=== PATIENT | male | born 1940 | race Caucasian/White ===

== ENCOUNTER → 2016-07-08 | Outpatient (CLI) | payer OTHER ==
--- NOTE | 2016-07-08 11:48 | DX ---
Left Wrist, Four Views, 11:11 a.m. Clinical History: 76-year-old male who presents for follow up of a dorsal triquetral fracture sustain ed after an injury on June 10, 2016. ICD-10 Diagnostic Code: S62.1158. Comparison Study: Left wrist, dated June 11, 2016. Findings: In the interim, there has been development of a transversely-oriented healing sclerosis at the site of a distal radial metaphyseal nondisplaced fracture. There is also a punctate radial styloi d avulsion fracture. There is an old healed ulnar distal metadiaphyseal junction fracture deformity. The previous study demonstrated a dorsal triquetral avulsion fracture fragment which is not appreciat ed currently and could be superimposed or there could have been osseous incorporation since the previ ous study. There is some degenerative osteoarthrosis with subchondral sclerosis of the distal navicul ar-greater multangular articulation, and also some degenerative osteoarthrosis of the thumb carpometa carpal joint. There is a subchondral geode (or marginal erosion) along the distal radial aspect of th e navicular. The bones are demineralized. Impression: 1. Healing sclerosis at the site of a nondisplaced distal radial metaphyseal fracture, with an associ ated punctate radial styloid avulsion fracture. 2. Old healed fracture deformity of the distal ulnar metadiaphyseal junction. 3. The prior dorsal triquetral avulsion fracture is not appreciated today, which could be projectiona lly superimposed or be related to some osseous incorporation. 4. Degenerative changes involving the distal radial aspect of the carpal bones and the thumb carpomet acarpal joint.
== END ==
LOC: BMCIMAGING 11:12
PROVIDERS: ATTEND Physician Assistant
DX: S62.115A Nondisplaced fracture of triquetrum [cuneiform] bone, left wrist, initial encounter for closed fracture (principal); X58.XXXA Exposure to other specified factors, initial encounter

== ENCOUNTER → 2016-10-20 | Outpatient (CLI) | payer OTHER | LOC: BMCIMAGING 11:28 | PROVIDERS: ATTEND Podiatrist Foot & Ankle Surgery | DX: M20.11 Hallux valgus (acquired), right foot (principal); M19.071 Primary osteoarthritis, right ankle and foot; M89.8X7 Other specified disorders of bone, ankle and foot ==

== ENCOUNTER 2016-11-06 16:24 | Inpatient (IN) | payer OTHER ==
--- NOTE | 2016-11-06 16:48 | CPEKG ---
Heart Rate: 117 RR Interval: 513 P-R Interval: 184 QRSD Interval: 94 QT Interval: 320 QTC Interval: 447 P Sheridan: 38 QRS Sheridan: 24 T Wave Sheridan: -15 EKG Severity - BORDERLINE ECG - EKG Impression: SINUS TACHYCARDIA EKG Impression: PROBABLE LEFT ATRIAL ABNORMALITY Electronically Signed By: Sarah Mohr 06-Nov-2016 23:00:17
[2016-11-06] MEDS ORDERED: NS 1,000 ML IV ONE (17:09)
[2016-11-06 17:28] LABS: % IMMATURE GRANULYOCYTES 0.3 % (0.0-1.1); ABSOLUTE IMMATURE GRANULOCYTES 0.02 10^3/uL (0.00-0.10); ADD DIFF? NO; ADD MORPH? NO; ADD SCAN? NO; ATYPICAL LYMPHOCYTE FLAG 0 (0-99); FRAGMENT RBC FLAG 0 (0-99); HEMATOCRIT 41.7 % (40.0-51.0); HEMOGLOBIN 14.1 g/dL (13.7-17.5); LEFT SHIFT FLG 0 (0-99); LIPEMIA HEMOLYSIS FLAG 90 (0-99); MEAN CELL HEMOGLOBIN 29.6 pg (27.9-34.1); MEAN CELL HEMOGLOBIN CONCENTR. 33.8 g/dL (32.4-36.7); MEAN CELL VOLUME 87.6 fL (81.5-99.8); MEAN PLATELET VOLUME 9.8 fL (8.7-11.7); PLATELET CLUMPS FLAG 0 (0-99); PLATELET COUNT 252 10^3/uL (150-400); RED BLOOD CELL COUNT 4.76 10^6/uL (4.40-6.38); RED CELL DISTRIBUTION WIDTH 14.9 % (11.5-15.2)
--- NOTE | 2016-11-06 17:33 | EDPHY ---
H & P Time Seen by Provider: 11/06/16 17:20 HPI/ROS: CHIEF COMPLAINT: Confusion HISTORY OF PRESENT ILLNESS: Patient is a 76-year-old male with a history of dementia. Over the past few days he has had increasing confusion and altered mental status. Patient's states this is not typical. states he had difficulty getting out of bed. She was concerned that he was going to fall getting to the car. This is not typical. Patient has had an occasional cough. No fever or chills. The patient has no specific complaints at this time. He denies headache, neck pain, chest pain, shortness of breath, abdominal pain, nausea, vomiting or diarrhea. REVIEW OF SYSTEMS: My complete review of systems is negative except as mentioned in the HPI. Past Medical/Surgical History: Includes dementia, psoriasis, eczema, chronic foot pain Past surgical history: Negative Social: Patient lives at home with his . He does not smoke. Smoking Status: Former smoker Physical Exam: Vitals noted. 37.3, 119/86, 129, 20, 93% on room air. When I entered the room his heart rate was 100. GENERAL: Well-appearing, in no acute distress, alert. Of note when I evaluated the patient and had him sit up he became dizzy. Heart rate went from 100 to 110. HEENT: Eyes normal to inspection, normal pharynx, no signs of dehydration. NECK: No thyromegaly, no lymphadenopathy, supple. RESPIRATORY: Clear to auscultation bilaterally, no rales, rhonchi or wheezing. CVS: Regular rate and rhythm, no rubs, murmurs, or gallops. ABDOMEN: Soft, nontender, nondistended, no organomegaly. BACK: Normal to inspection, no CVA tenderness. SKIN: Normal color, diffuse psoriasis and eczema, warm, dry. No pallor. EXTREMITIES: No pedal edema, no calf tenderness, no Homans sign or cords, no joint swelling. NEURO/PSYCH: Alert and oriented x3, normal mood and affect, normal motor sensory exam. No obvious cranial nerve deficit. Constitutional: Initial Vital Signs Temperature (C) 37.3 C 11/06/16 16:34 Heart Rate 129 H 11/06/16 16:34 Respiratory Rate 20 11/06/16 16:34 Blood Pressure 119/86 H 11/06/16 16:34 O2 Sat (%) 93 11/06/16 16:34 O2 Delivery Mode Nasal Cannula O2 (L/minute) 2 Allergies/Adverse Reactions: No Known Allergies Allergy (Unverified 11/06/16 16:34) Home Medications: Medication Instructions Recorded Donepezil HCl [Aricept] 5 mg PO 11/06/16 MIRTAZAPINE [Remeron 7.5 mg] 7.5 mg PO HS 11/06/16 Memantine HCl [Namenda 5 mg (*)] 5 mg PO BID 11/06/16 Medical Decision Making - Diagnostics EKG Interpretation: Sinus tachycardia 117. Normal axis. Normal intervals. Q-wave in II, III. Slight ST depression in V 4 and 5. Imaging Results: Imaging Impressions Chest X-Ray 11/06/16 17:09 Impression: Suspect early right upper lobe pneumonia. ED Course/Re-evaluation: In the emergency department I discussed possible etiologies with the patient. Laboratory studies, chest x-ray, and EKG ordered. Cultures are pending. The patient was given 1 L of normal saline on arrival. On recheck he is still mildly tachycardic when sitting up. He was given normal saline 500 mL IV. Patient's laboratory studies were unremarkable. CBC and chemistry were normal. Lactic acid was normal. UA is pending. Chest x-ray: Please refer the dictated report by the radiologist. Early right upper lobe pneumonia. The patient was given Levaquin 750 mg IV. Cultures are pending. I discussed the result with the patient and his . I answered all her questions. I discussed case with the hospitalist service. Patient will be admitted for further care. Differential Diagnosis: My differential includes but is not limited to bacteremia, sepsis, pneumonia, urinary tract infection, electrolyte abnormality, sugar abnormality, ACS, acute SD, dysrhythmia, dementia, CVA - Data Points Laboratory Results: Laboratory Results 11/06/16 16:43 11/06/16 16:43 11/06/16 11/06/16 11/06/16 18:50 17:48 16:43 WBC RBC Hgb Hct MCV MCH MCHC RDW Plt Count MPV Neut % (Auto) Lymph % (Auto) Love % (Auto) Eos % (Auto) Baso % (Auto) Nucleat RBC Rel Count Absolute Neuts (auto) Absolute Lymphs (auto) Absolute Monos (auto) Absolute Eos (auto) Absolute Basos (auto) Absolute Nucleated RBC Immature Gran % Immature Gran # VBG Lactic Acid 1.1 mmol/L mmol/L (0.7-2.1) Sodium 137 mEq/L mEq/L (134-144) Potassium 4.5 mEq/L mEq/L (3.5-5.2) Chloride 103 mEq/L mEq/L (97-110) Carbon Dioxide 25 mEq/l mEq/l (22-31) Anion Gap 9 mEq/L mEq/L (8-16) BUN 14 mg/dL mg/dL (7-23) Creatinine 0.7 mg/dL mg/dL (0.7-1.3) Estimated GFR > 60 Glucose 149 mg/dL H mg/dL (70-100) Calcium 10.1 mg/dL mg/dL (8.5-10.4) Troponin I < 0.012 ng/mL ng/mL (0-0.034) Urine Color Pending Urine Appearance Pending Urine pH Pending Ur Specific Odon Pending Urine Protein Pending Urine Ketones Pending Urine Blood Pending Urine Nitrate Pending Urine Bilirubin Pending Urine Urobilinogen Pending Ur Leukocyte Esterase Pending Urine Glucose Pending 11/06/16 16:43 WBC 7.54 10^3/uL 10^3/uL (3.80-9.50) RBC 4.76 10^6/uL 10^6/uL (4.40-6.38) Hgb 14.1 g/dL g/dL (13.7-17.5) Hct 41.7 % % (40.0-51.0) MCV 87.6 fL fL (81.5-99.8) MCH 29.6 pg pg (27.9-34.1) MCHC 33.8 g/dL g/dL (32.4-36.7) RDW 14.9 % % (11.5-15.2) Plt Count 252 10^3/uL 10^3/uL (150-400) MPV 9.8 fL fL (8.7-11.7) Neut % (Auto) 71.1 % % (39.3-74.2) Lymph % (Auto) 15.5 % % (15.0-45.0) Love % (Auto) 11.9 % % (4.5-13.0) Eos % (Auto) 0.4 % L % (0.6-7.6) Baso % (Auto) 0.8 % % (0.3-1.7) Nucleat RBC Rel Count 0.0 % % (0.0-0.2) Absolute Neuts (auto) 5.36 10^3/uL 10^3/uL (1.70-6.50) Absolute Lymphs (auto) 1.17 10^3/uL 10^3/uL (1.00-3.00) Absolute Monos (auto) 0.90 10^3/uL H 10^3/uL (0.30-0.80) Absolute Eos (auto) 0.03 10^3/uL 10^3/uL (0.03-0.40) Absolute Basos (auto) 0.06 10^3/uL 10^3/uL (0.02-0.10) Absolute Nucleated RBC 0.00 10^3/uL 10^3/uL (0-0.01) Immature Gran % 0.3 % % (0.0-1.1) Immature Gran # 0.02 10^3/uL 10^3/uL (0.00-0.10) VBG Lactic Acid Sodium Potassium Chloride Carbon Dioxide Anion Gap BUN Creatinine Estimated GFR Glucose Calcium Troponin I Urine Color Urine Appearance Urine pH Ur Specific Odon Urine Protein Urine Ketones Urine Blood Urine Nitrate Urine Bilirubin Urine Urobilinogen Ur Leukocyte Esterase Urine Glucose Medications Given: Discontinued Medications Sodium Chloride (Ns) 1,000 mls @ 0 mls/hr IV ONCE ONE PRN Reason: Wide Open Stop: 11/06/16 17:10 Last Admin: 11/06/16 17:11 Dose: 1,000 mls Sodium Chloride (Ns) 500 mls @ 0 mls/hr IV ONCE ONE PRN Reason: Wide Open Stop: 11/06/16 17:59 Last Admin: 11/06/16 18:15 Dose: 500 mls Departure - Departure Disposition: [facility] Clinical Impression: Confusion Right upper lobe pneumonia Qualifiers: Pneumonia type: due to unspecified organism Qualified Code(s): J18.1 - Lobar pneumonia, unspecified organism Condition: Good Referrals: Tena Terrazas MD [Primary Care Provider] - As per Instructions
[2016-11-06 17:35] LABS: ANION GAP 9 mEq/L (8-16); CALCIUM 10.1 mg/dL (8.5-10.4); CARBON DIOXIDE 25 mEq/l (22-31); CHLORIDE 103 mEq/L (97-110); CREATININE 0.7 mg/dL (0.7-1.3); GLOMERULAR FILTRATION RATE > 60; GLUCOSE 149 mg/dL (70-100); POTASSIUM 4.5 mEq/L (3.5-5.2); SODIUM 137 mEq/L (134-144)
[2016-11-06 17:47] LABS: TROPONIN I < 0.012 ng/mL (0-0.034)
[2016-11-06] MEDS ORDERED: NS 500 ML IV ONE (17:58)
[2016-11-06 19:29] LABS: COLOR YELLOW; LEUKOCYTE ESTERASE,URINE TRACE (NEGATIVE); NITRITE,URINE NEGATIVE (NEGATIVE)
[2016-11-06 19:30] LABS: MUCUS TRACE /lpf (NONE-1+)
[2016-11-06] MEDS ORDERED: MIRTAZAPINE 15 MG TAB PO PRN (21:00)
[2016-11-06] MEDS ORDERED: Diclofenac Sodium [Voltaren Gel (*)] 1 APP TP PRN (21:03)
[2016-11-06] MEDS ORDERED: ONDANSETRON 4 MG/2 ML VIAL IVP PRN (21:06)
[2016-11-06] MEDS ORDERED: ACETAMINOPHEN 325 MG TAB PO PRN (21:06)
[2016-11-06] MEDS ORDERED: NS 1,000 ML IV SCH (21:15)
--- NOTE | 2016-11-06 22:02 | GHP ---
[f rep st] HISTORY AND PHYSICAL DATE OF ADMISSION: 11/06/2016 CHIEF COMPLAINT: Confusion. HISTORY: The patient is a 76-year-old male with dementia, who has been having increasing confusion for the last 2-3 days. He is having a difficult time getting out of bed. He and his were supp osed to go to the [facility]; however, he became acutely more incoherent, shaking, disoriented, a nd she could barely get him in and out of the car to get to the hospital. There has been no cough. There is no obvious trouble swallowing. He does, however, have poor p.o. intake. There has been n o recent weight loss. He has chronic urinary frequency and urgency due to known underlying BPH. Th ere has been no dysuria. PAST MEDICAL HISTORY: 1. Dementia. 2. Psoriasis. 3. Eczema. 4. BPH. PAST SURGICAL HISTORY: Total knee arthroplasty. MEDICATIONS: Please see computer record for full detailed list. ALLERGIES: No known drug allergies. SOCIAL HISTORY: Distant smoking. 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 He is a ret [employer]. He lives with his of over 50 years. REVIEW OF SYSTEMS: Complete review of systems reviewed. Review of systems negative regarding const itutional, HEENT, GI, pulmonary, cardiovascular, , hematology, skin, musculoskeletal, endocrine, p sych, except for positives as in HPI. FAMILY HISTORY: Reviewed, noncontributory to the presenting complaint. PHYSICAL EXAMINATION: GENERAL: Well-developed, well-nourished male, in no acute distress. VITAL S IGNS: Temperature is 37.2, pulse of 90, blood pressure 133/93, saturating 96% on 2 L. EYES: Tamy l conjunctivae. Pupils equal and reactive to light. ENT: Normal ears and nose. Hearing intact. Normal lips and teeth. Oropharynx moist. NECK: Trachea midline. No thyromegaly. CHEST: Normal respiratory effort. LUNGS: Clear to auscultation bilaterally. CARDIOVASCULAR: Regular rate and r hythm. No murmur. No lower extremity edema. ABDOMEN: Soft. Nontender. No hepatosplenomegaly. SKIN: Has an extensive rash, scaling plaques over his whole body which are chronic. There is no ac [place] erythema or warmth. is unclear which areas are eczema and which are psoriasis. MUS[place]UL[place] LETAL: No cyanosis or clubbing. Strength 5/5 upper and lower extremities. NEUROLOGIC: Cranial ne rves intact. Normal sensation to light touch. PSYCH: Awake and alert. Very pleasant, cooperative , interactive. Does have memory lapses but is quite participatory and engaged in his care. LABORATORY DATA: White count 7.54, hematocrit 41.7, platelets 252. Sodium 137, potassium 4.5, chlo ride 103, bicarb 25, BUN 14, creatinine 0.7, glucose 149. Troponin is negative. Lactate 1.1. Urin alysis shows 5-10 white blood cells. EKG reviewed by me, my personal interpretation is sinus tachyc ardia, heart rate 117. Chest x-ray shows right upper lobe pneumonia. This case was discussed with Dr. Sarah Mohr, emergency room physician. He felt this was pneumonia and started on Levaquin. ASSESSMENT AND PLAN: 1. Metabolic encephalopathy. I suspect there is an underlying infection driving this, possibly pne umonia versus urinary tract infection. Will continue Levaquin. 2. Probable right upper lobe pneumonia. Given this right upper lobe location, we do need to consid er aspiration, but he does not have any signs of it clinically. Will consult Speech Therapy. If un derlying dysphagia is noted, would consider changing antibiotics to something with anaerobic coverag e. He does not have any identified TB risk factors. 3. Benign prostatic hypertrophy. He has chronic symptoms of retention. Not currently on any treat ment. Consider adding Flomax. Will check bladder scans. 4. Dementia. Continue Aricept and Namenda. 5. Psoriasis and eczema. Stable. ADMISSION STATUS: Will admit to inpatient as he is medically complex. Anticipate greater than 2 mi dnights. CODE STATUS: Full. DVT PROPHYLAXIS: He is high risk. Will prescribe subcu Lovenox. /[id number]/MODL
[2016-11-07 04:34] LABS: % IMMATURE GRANULYOCYTES 0.2 % (0.0-1.1); ABSOLUTE IMMATURE GRANULOCYTES 0.01 10^3/uL (0.00-0.10); ADD DIFF? NO; ADD MORPH? NO; ADD SCAN? NO; ATYPICAL LYMPHOCYTE FLAG 30 (0-99); FRAGMENT RBC FLAG 0 (0-99); HEMOGLOBIN 12.2 g/dL (13.7-17.5); LEFT SHIFT FLG 0 (0-99); LIPEMIA HEMOLYSIS FLAG 90 (0-99); MEAN CELL HEMOGLOBIN 29.9 pg (27.9-34.1); MEAN CELL HEMOGLOBIN CONCENTR. 33.9 g/dL (32.4-36.7); MEAN CELL VOLUME 88.2 fL (81.5-99.8); MEAN PLATELET VOLUME 9.2 fL (8.7-11.7); PLATELET CLUMPS FLAG 10 (0-99); PLATELET COUNT 196 10^3/uL (150-400); RED BLOOD CELL COUNT 4.08 10^6/uL (4.40-6.38)
[2016-11-07 04:44] LABS: INR 1.15 (0.83-1.16); PROTIME(PATIENT) 14.6 SEC (12.0-15.0)
[2016-11-07 04:53] LABS: ALANINE AMINOTRANSFERASE 24 IU/L (21-72); ALBUMIN 3.3 g/dL (3.5-5.0); ALKALINE PHOSPHATASE 62 IU/L (38-126); ANION GAP 7 mEq/L (8-16); ASPARTATE AMINOTRANSFERASE 15 IU/L (17-59); BILIRUBIN,TOTAL 0.7 mg/dL (0.1-1.4); BILIRUBIN-CONJUGATED 0.3 mg/dL (0.0-0.5); BILIRUBIN-UNCONJUGATED 0.4 mg/dL (0.0-1.1); CALCIUM 9.2 mg/dL (8.5-10.4); CARBON DIOXIDE 25 mEq/l (22-31); CHLORIDE 110 mEq/L (97-110); CREATININE 0.6 mg/dL (0.7-1.3); GLOMERULAR FILTRATION RATE > 60; GLUCOSE 91 mg/dL (70-100); SODIUM 142 mEq/L (134-144); TOTAL PROTEIN 5.8 g/dL (6.3-8.2)
[2016-11-07] MEDS: levOFLOXACIN 500 MG/DEXTROSE 100 ML IV SCH (08:01)
[2016-11-07] MEDS: ENOXAPARIN 40 MG/0.4 ML SYR SC SCH (08:01)
[2016-11-07] MEDS: MEMANTINE HCL 5 MG TAB PO SCH ×2 (08:02→20:26)
[2016-11-07] MEDS ORDERED: METHYLPHENIDATE HCL 27 MG PO SCH (09:00)
[2016-11-07] MEDS ORDERED: ERGOCALCIFEROL 50,000 I.UNIT CAP PO SCH (13:00)
--- NOTE | 2016-11-07 13:11 | HOSPPROG ---
Hospitalist Progress Note Assessment/Plan: 76 yo M w dementia here w confusion and possible RUL Pneumonia pneumonia: probable continue levoflox cxr in AM encephalopathy: superimposed on pre-existing dementia has recently taken tylenol pm (w benadryl) lytes ok no alcohol proph: lmwh endo: slightly low tsh- uncertain clinical significance check t3/t4 code: full dispo: inpt Subjective: cxr w probable rul infiltrate (interp by me). ekg non ischemic ( interp by me) Objective: Vital Signs Temp Pulse Resp BP Pulse Ox 37.0 C 92 16 107/68 92 11/07/16 11:28 11/07/16 11:28 11/07/16 11:28 11/07/16 11:28 11/07/16 11:28 Laboratory Results 11/07/16 04:20 11/07/16 04:20 11/06/16 11/07/16 11/08/16 05:59 05:59 05:59 Intake Total 500 Output Total 1150 300 Balance -650 -300 PT 14.6 SEC (12.0-15.0) 11/07/16 04:20 INR 1.15 (0.83-1.16) 11/07/16 04:20 - Physical Exam Constitutional: no apparent distress, appears nourished Eyes: PERRL, anicteric sclera Ears, Nose, Mouth, Throat: moist mucous membranes, hearing normal Cardiovascular: regular rate and rhythym, no murmur, rub, or gallop Respiratory: no respiratory distress, no rales or rhonchi, other (RUL CTA) Gastrointestinal: normoactive bowel sounds, soft, non-tender abdomen Genitourinary: no bladder fullness, No king in urethra Skin: warm, normal color Neurologic: other (alert, conversant, confused, articulate) Psychiatric: interacting appropriately ICD10 Worksheet Patient Problems: Problems Problem Status Onset Confusion Acute Right upper lobe pneumonia Acute
[2016-11-07] MEDS: PHOSPSERIN PO SCH (20:28)
[2016-11-07] MEDS: OMEGA PO SCH (20:28)
[2016-11-07] MEDS: DHA PO SCH (20:28)
[2016-11-07] MEDS: EPA PO SCH (20:28)
[2016-11-07] MEDS ORDERED: DONEPEZIL HCL 5 MG TAB PO SCH ×2 (21:00)
[2016-11-07] MEDS ORDERED: NON-FORMULARY NEW DRUG (Donepezil Hcl [Aricept] 10 MG) PO SCH (21:00)
[2016-11-08 08:50] VITALS: RESP 16
[2016-11-08] MEDS: MEMANTINE HCL 5 MG TAB PO SCH (09:07)
[2016-11-08] MEDS: ENOXAPARIN 40 MG/0.4 ML SYR SC SCH (09:07)
[2016-11-08] MEDS: levOFLOXACIN 500 MG/DEXTROSE 100 ML IV SCH (09:07)
[2016-11-08] MEDS: OMEGA PO SCH (09:09)
[2016-11-08] MEDS: DHA PO SCH (09:09)
[2016-11-08] MEDS: PHOSPSERIN PO SCH (09:09)
[2016-11-08] MEDS: EPA PO SCH (09:09)
[2016-11-08 11:14] VITALS: BP 107/63; PULSE 94; TEMP 98.4; O2SAT 93
--- NOTE | 2016-11-08 11:40 | PDIAF ---
- Diagnosis Diagnosis: metabolic encephalopathy Code Status: Full Code - Medication Management Discharge Medications: Medications to Continue on Transfer Donepezil HCl 10 mg PO HS 11/06/16 [Last Taken 11/05/16] Ergocalciferol [Vitamin D2 (*)] 50,000 unit PO YUEN 11/06/16 [Last Taken 10/31/16] MIRTAZAPINE [Remeron 7.5 mg] 7.5 mg PO HS 11/06/16 [Last Taken 11/05/16] Memantine HCl [Namenda 10 mg] 10 mg PO BID 11/06/16 [Last Taken 11/06/16 08:00] Methylphenidate HCl [Methylphenidate ER] 27 mg PO DAILY 11/06/16 [Last Taken 12/18] Donepezil HCl [Aricept] 10 mg PO HS 11/07/16 [Last Taken 11/05/16] Phospserin/[place]-3/Dha/Epa [Vayacog Capsules] 1 each PO BID 11/07/16 [Last Taken 11/06/16 08:00] levOFLOXACIN [levAQUIN (*)] 750 mg PO DAILY #2 tab 11/08/16 [Last Taken Unknown] traZODone [traZODONE 50MG (*)] 50 mg PO HS #30 tab 11/08/16 [Last Taken Unknown] Discharge Medications: Refer to the Discharge Home Medication list for PRN reason. - Orders Services needed: Home Care, Physical Therapy, Occupational Therapy Home Care Face to Face: I certify that this patient was under my care and that I had the required [id number] encounter meeting the encounter requirements on the discharge day. My findings support the fact that the patient is homebound as defined in CMS Chapter 7 Medicare Benefits Manual 30.1.1, The condition of the patient is such that there exists a normal inability to leave home and consequently, leaving home would require a considerable and taxing effort. Diet Texture: Regular Texture Diet, Thin Liquids, Meds Whole w/Liquids, Meds Whole in Puree - Follow Up Care Current Providers and Referrals: Tena Terrazas MD [Primary Care Provider] - As per Instructions
--- NOTE | 2016-11-08 21:18 | GDS ---
[f rep st] DISCHARGE SUMMARY DISCHARGE DIAGNOSES: 1. Metabolic encephalopathy. 2. Possible pneumonia. 3. BPH. 4. Dementia. 5. Psoriasis and eczema. HISTORY: The patient is a 76-year-old male with dementia who presented with increasing confusion an d weakness. Initial chest x-ray was felt to have possible pneumonia, and he was started on Levaquin . He improved quite rapidly, and is now back to baseline. Followup chest x-ray shows minimal infil trates, so it is not clear if there ever truly was a pneumonia. I did discuss this with the patient and his , and they did desire to complete the course of antibiotics, even though understanding the diagnosis of pneumonia is uncertain. He has 2 more days of Levaquin to complete a 5-day course. He has completely returned to baseline mental status, and his felt very comfortable taking hi m home. He does take intermittent Benadryl for sleep, which may have caused the encephalopathy. He was recommended to avoid this medication. They did request an alternative sleep aid, and he was pr escribed trazodone. DISCHARGE MEDICATIONS: Please see computer record for full detailed list. New medications: 1. Levaquin 750 mg p.o. daily for 2 more days. 2. Trazodone 50 mg p.o. at bedtime. ADDITIONAL DISCHARGE INSTRUCTIONS: Follow up with primary care, Dr. Tena Terrazas. Greater 30 minutes' time was spent in arranging this discharge. Patient seen and examined by me on day of discharge. /[id number]/MODL
== END 2016-11-08 12:53 | disposition home health service (06) | DRG 91 ==
LOC: F3E 20:25 → OBSVTOIN 21:04
PROVIDERS: ADMIT Internal Medicine; ATTEND Internal Medicine
DX: G92 Toxic encephalopathy (principal); J18.0 Bronchopneumonia, unspecified organism; T45.0X5A Adverse effect of antiallergic and antiemetic drugs, initial encounter; N40.1 Benign prostatic hyperplasia with lower urinary tract symptoms; F03.90 Unspecified dementia, unspecified severity, without behavioral disturbance, psychotic disturbance, mood disturbance, and anxiety; L40.9 Psoriasis, unspecified; L30.9 Dermatitis, unspecified; R35.0 Frequency of micturition; R39.15 Urgency of urination
CPT/HCPCS: 84481-90; 92610-GN; 96365; 97161-GP; 97165-GO; G8979-GP-CI; G8980-GP-CI; G8987-GO-CI; G8988-GO-CI; G8996-GN-CH; G8997-GN-CH; G8998-GN-CH; J1650; J1956

== ENCOUNTER → 2017-12-13 | Outpatient (CLI) | payer OTHER | LOC: FCPNEURO 15:03 | PROVIDERS: ATTEND Student in an Organized Health Care Education/Training Program | DX: G47.33 Obstructive sleep apnea (adult) (pediatric) (principal) ==